=== PATIENT | female | born 2000 | race Caucasian/White ===

== ENCOUNTER 2021-12-15 20:22 | Outpatient (CLI) | payer OTHER ==
[2021-12-15] MEDS ORDERED: PRENATAL TABLE1 EAC1 PO (23:00)
[2021-12-15] MEDS ORDERED: CHILDREN'S ASPI81 MG PO (23:00)
== END 2021-12-16 18:39 | disposition home or self-care (01) ==
LOC: OBS/DEL 20:22
PROVIDERS: ATTEND Obstetrics & Gynecology
DX: O36.8130 Decreased fetal movements, third trimester, not applicable or unspecified (principal); Z3A.29 29 weeks gestation of pregnancy

== ENCOUNTER 2022-01-08 19:41 | Outpatient (CLI) | payer OTHER ==
[~2022-01-08 19:41] MED LIST: CHILDREN'S ASPI81 MG PO; PRENATAL TABLE1 EAC1 PO
== END 2022-01-09 15:02 | disposition home or self-care (01) ==
LOC: OBS/DEL 19:41
PROVIDERS: ATTEND Obstetrics & Gynecology
DX: O26.893 Other specified pregnancy related conditions, third trimester (principal); Z3A.32 32 weeks gestation of pregnancy

== ENCOUNTER 2022-02-16 00:07 | Inpatient (IN) | payer OTHER ==
[~2022-02-16] VITALS: Ht 157.5 cm; Wt 2.3 kg
== END 2022-02-19 13:30 | disposition home or self-care (01) | DRG 788 ==
LOC: OBS/DEL 00:07 → LDR 11:42 → OB/GYN 22:48
PROVIDERS: ADMIT Obstetrics & Gynecology; ATTEND Obstetrics & Gynecology
PROC: 4A1HXCZ Monitoring of Products of Conception, Cardiac Rate, External Approach (ICD-10-PCS; 2022-02-16)
PROC: BY4FZZZ Ultrasonography of Third Trimester, Single Fetus (ICD-10-PCS; 2022-02-16)
PROC: 10D00Z1 Extraction of Products of Conception, Low, Open Approach (ICD-10-PCS; principal; 2022-02-16 19:15)
DX: O36.5930 Maternal care for other known or suspected poor fetal growth, third trimester, not applicable or unspecified (principal); O36.8130 Decreased fetal movements, third trimester, not applicable or unspecified; O26.843 Uterine size-date discrepancy, third trimester; Z3A.38 38 weeks gestation of pregnancy; Z37.0 Single live birth; Z20.822 Contact with and (suspected) exposure to COVID-19

== ENCOUNTER 2025-03-18 09:38 | Outpatient (CLI) | payer OTHER | END 2025-03-18 09:40 | disposition home or self-care (01) | LOC: PRENATAL 09:38 | PROVIDERS: ATTEND Obstetrics & Gynecology Maternal & Fetal Medicine | DX: O26.849 Uterine size-date discrepancy, unspecified trimester (principal); O36.8199 Decreased fetal movements, unspecified trimester, other fetus; O36.5990 Maternal care for other known or suspected poor fetal growth, unspecified trimester, not applicable or unspecified; O34.219 Maternal care for unspecified type scar from previous cesarean delivery; Z3A.35 35 weeks gestation of pregnancy ==